=== PATIENT | male | born 1990 | race Two or more races ===

== ENCOUNTER 2017-05-31 01:35 | Emergency (ER) | payer OTHER ==
[2017-05-31 01:40] VITALS: BP 136/67; PULSE 74; RESP 18; TEMP 97.9; O2SAT 95
--- NOTE | 2017-05-31 01:49 | EDPHY ---
H & P Stated Complaint: insect in right ear HPI/ROS: HPI CHIEF COMPLAINT: I think I have a bug in my right ear HISTORY OF PRESENT ILLNESS: This patient very pleasant 26-year-old male, no history, no medical history or surgical history presents emergency room stating he thinks he had a bug in his right ear. States he was walking to the house and felt something in his right ear. Denies any significant pain. Past Medical History: Denies medical history Past Surgical History: Denies surgical history Social History: Denies daily use drugs alcohol tobacco products. Lives locally. Family History: Noncontributory ROS REVIEW OF SYSTEMS: A comprehensive 10 point review of systems is otherwise negative aside from elements mentioned in the history of present illness. Exam Constitutional appears well nontoxic triage nursing summary reviewed, vital signs reviewed, awake/alert. Eyes normal conjunctivae and sclera, EOMI, PERRLA. HENT right ear canal large amount of cerumen present. No visible foreign body. No visible bug. Left ear canal and TM clear. normal inspection, atraumatic, moist mucus membranes, no epistaxis, neck supple/ no meningismus, no raccoon eyes. Respiratory clear to auscultation bilaterally, normal breath sounds, no respiratory distress, no wheezing. Cardiovascular rate normal, regular rhythm, no murmur, no edema, distal pulses normal. Gastrointestinal soft, non-tender, no rebound, no guarding, normal bowel sounds, no distension, no pulsatile mass. Genitourinary no CVA tenderness. Musculoskeletal no midline vertebral tenderness, full range of motion, no calf swelling, no tenderness of extremities, no meningismus, good pulses, neurovascularly intact. Skin pink, warm, & dry, no rash, skin atraumatic. Neurologic awake, alert and oriented x 3, AAOx3, moves all 4 extremities equally, motor intact, sensory intact, CN II-XII intact, normal cerebellar, normal vision, normal speech. Psychiatric normal mood/affect. Heme/Lymph/Immune no lymphadenopathy. Differential Diagnosis: Cerumen impaction, foreign body near Medical Decision Making: Plan for this patient irrigate right ear. Re-evaluation: Patient ear was irrigated. There was a foreign body or a bug removed from the right ear canal. Patient feeling better. Source: Patient - Personal History Current Tetanus/Diphtheria Vaccine: Unsure Current Tetanus Diphtheria and Acellular Pertussis (TDAP): Unsure - Medical/Surgical History Hx Asthma: No Hx Chronic Respiratory Disease: No Hx Diabetes: No Hx Cardiac Disease: No Hx Renal Disease: No Hx Cirrhosis: No Hx Alcoholism: No Hx HIV/AIDS: No Hx Splenectomy or Spleen Trauma: No Other PMH: denies - Social History Smoking Status: Never smoked Constitutional: Initial Vital Signs Temperature (C) 36.6 C 05/31/17 01:37 Heart Rate 74 05/31/17 01:37 Respiratory Rate 18 05/31/17 01:37 Blood Pressure 136/67 H 05/31/17 01:37 O2 Sat (%) 95 05/31/17 01:37 O2 Delivery Mode Room Air Allergies/Adverse Reactions: No Known Allergies Allergy (Unverified 05/31/17 01:40) Home Medications: Medication Instructions Recorded NK [No Known Home Meds] 05/31/17 Departure - Departure Disposition: Home, Routine, Self-Care Clinical Impression: Cerumen impaction Qualifiers: Laterality: right Qualified Code(s): H61.21 - Impacted cerumen, right ear Foreign body in ear Qualifiers: Encounter type: initial encounter Laterality: right Qualified Code(s): T16.1XXA - Foreign body in right ear, initial encounter Condition: Good Instructions: Cerumen Impaction (ED), Ear Foreign Body (ED) Referrals: Stephanie Peña MD [Primary Care Provider] - As per Instructions
== END 2017-05-31 02:17 | disposition home or self-care (01) ==
DX: H61.21 Impacted cerumen, right ear (principal); X58.XXXA Exposure to other specified factors, initial encounter; Y99.8 Other external cause status